=== PATIENT | female | born 1945 | race Two or more races ===

== ENCOUNTER 2017-02-02 17:15 | Emergency (ER) | payer MEDICARE, OTHER ==
--- NOTE | 2017-02-02 17:41 | ED.ADGEN ---
Past History Past Medical History: Hypertension Adult General Chief Complaint Chief Complaint " .. I fell 2 days ago.. working in the yard and garden...and hit the Rt. side of my head... I am still a little dizzy and off.. and the bruise is getting bigger..." HPI HPI Patient is a 71 year old female who presents with above hx and complaints of Rt sided head injury. Pt. has area of ecchymosis on right temporal. Pt. normally healthy. Does have a history of hypertension which she takes lisinopril .. Patient states that since injury she been somewhat"off" and dizzy. Patient does state the area of ecchymosis is seeming to increase. Patient denies use of any anticoagulants. Patient follows at [facility]. Review of Systems Review of Systems Constitutional: Denies fever or chills [] Eyes: Denies change in visual acuity, redness, or eye pain [] HENT: Denies nasal congestion or sore throat [ Complaints of head injury Respiratory: Denies cough or shortness of breath [] Cardiovascular: No additional information not addressed in HPI [] GI: Denies abdominal pain, nausea, vomiting, bloody stools or diarrhea [] : Denies dysuria or hematuria [] Musculoskeletal: Denies back pain or joint pain [] Integument: Denies rash or skin lesions [] Neurologic: Denies headache, focal weakness or sensory changes [] Endocrine: Denies polyuria or polydipsia [] Family History Family History Noncontributory Current Medications Current Medications See nursing for home meds Allergies Allergies Allergies Coded Allergies Type Severity Reaction Last Updated Verified No Known Drug Allergies 02/02/17 No No known drug allergies Physical Exam Physical Exam Constitutional: , no acute distress, non-toxic appearance. [] HENT: Normocephalic, contusion right temporal, bilateral external ears normal, oropharynx moist, no oral exudates, nose normal. [] Eyes: PERRLA, EOMI, conjunctiva normal, no discharge. [] Neck: Normal range of motion, no tenderness, supple, no stridor. [] Cardiovascular:Heart rate regular rhythm, no murmur [] Lungs & Thorax: Bilateral breath sounds clear to auscultation [] Abdomen: Bowel sounds normal, soft, no tenderness, no masses, no pulsatile masses. [] Skin: Warm, dry, no erythema, no rash. [] Back: No tenderness, no CVA tenderness. [] Extremities: No tenderness, no cyanosis, no clubbing, ROM intact, no edema. Arthritic changes Neurologic: Alert and oriented X 3, normal motor function, normal sensory function, no focal deficits noted. Aerial Photograph Interpreter are equal. Slightly off on Romberg and finger to nose bilaterally. DTRs +2. Patella and brachial. Drift bilaterally Psychologic: Affect anxious, judgement normal, mood normal. [] Current Patient Data Vital Signs Vital Signs Date Time Temp Pulse Resp B/P Pulse Ox O2 Delivery O2 Flow Rate FiO2 02/02/17 19:24 51 18 117/71 98 Room Air 02/02/17 17:15 97.6 EKG EKG [] Radiology/Procedures Radiology/Procedures My interpretation of CT head shows no shift, mass, edema, bleed, or fracture. Does have findings of soft tissue edema at area of contusion. Course & Med Decision Making Course & Med Decision Making Pertinent Labs and Imaging studies reviewed. (See chart for details). Ice when necessary. Follow-up primary care. May take Tylenol for pain. Follow-up primary care. Return if any concerns. [] Final Impression Final Impression 1. Closed Head Injury[] Problems: Dragon Disclaimer Dragon Disclaimer This electronic medical record was generated, in whole or in part, using a voice recognition dictation system. AURELIA SALDAÑA MD Feb 02, 2017 17:41
--- NOTE | 2017-02-02 18:34 | RAD ---
PROCEDURE CT head without contrast: HISTORY Fall 3 days ago dizziness bruising over right eye TECHNIQUE Noncontrast axial cross sectional CT scanning of the head was performed. FINDINGS No acute intracranial hemorrhage or midline shift or mass-effect or hydrocephalus or extra-axial fluid collection is seen. No focal hypodense area is seen to indicate an acute infarct or edema radiographically. No skull fracture or pneumocephalus is seen. No opacification of the mastoid sinuses or the paranasal sinuses is seen. The maxillary sinuses are not completely seen in this study. IMPRESSION No acute intracranial abnormality is seen. CT C-spine without contrast: Axial helical images of the C-spine obtained without contrast and axial coronal and sagittal reconstruction was performed. There is straightening of the normal cervical lordosis. There is no loss of vertebral body stature there is no prevertebral soft tissue swelling. There are posterior disc bulges with flattening of thecal sac however there is not appear to be gross flattening the cord. The visualized osseous structures appear intact. Impression No acute findings. Electronically signed by: Micky Alvarado MD (Feb 02, 2017 18:33:20)
[2017-02-02 19:24] VITALS: BP 117/71
== END 2017-02-02 19:24 | disposition home or self-care (01) ==
LOC: ER 17:15
DX: S09.8XXA Other specified injuries of head, initial encounter (principal); I10 Essential (primary) hypertension; W18.09XA Striking against other object with subsequent fall, initial encounter; Y93.89 Activity, other specified; Y99.8 Other external cause status; Y92.096 Garden or yard of other non-institutional residence as the place of occurrence of the external cause
CPT/HCPCS: 70450; 72125; 99284-25

== ENCOUNTER 2018-01-23 16:19 | Emergency (ER) | payer MEDICARE, OTHER ==
[2018-01-23 16:39] VITALS: BP 123/78
--- NOTE | 2018-01-23 16:53 | PHYS DOC ---
Past History Past Medical History: Hypertension Past Surgical History: Hysterectomy, Tonsillectomy, Other Alcohol Use: None Drug Use: None Adult General Chief Complaint Chief Complaint: LACERATION/AVULSION HPI HPI Patient is a 72-year-old female who presents ambulatory to the ED with a laceration to her left hand. She was using a knife to open a package and accidentally cut her left hand. Last tetanus shot was more than 10 years ago so she especially wants a tetanus shot. Review of Systems Review of Systems Constitutional: Denies fever or chills [] Current Medications Current Medications Current Medications Medications (Trade) Dose Ordered Sig/Jeff Start Time Stop Time Status Last Admin Dose Admin Diphtheria/ Tetanus/Acell Pertussis (Boostrix) 0.5 ml ONCE ONCE 01/23/18 17:00 01/23/18 17:01 Allergies Allergies Allergies Coded Allergies Type Severity Reaction Last Updated Verified No Known Drug Allergies 02/02/17 No Physical Exam Physical Exam Constitutional: Well developed, well nourished, no acute distress, non-toxic appearance. [] HENT: Normocephalic, atraumatic, bilateral external ears normal, nose normal. [] Eyes: conjunctiva normal, no discharge. [] Neck: Normal range of motion, no stridor. [] Skin: Warm, dry, no erythema, no rash. [] Extremities: Left hand: 1 cm laceration present over the radial aspect of the second MCP joint. It is very superficial but has been bleeding. Neurologic: Alert and oriented X 3, normal motor function, no focal deficits noted. [] Current Patient Data Vital Signs Vital Signs Date Time Temp Pulse Resp B/P (MAP) Pulse Ox O2 Delivery O2 Flow Rate FiO2 01/23/18 16:39 98.1 66 18 100 Room Air EKG EKG [] Radiology/Procedures Radiology/Procedures Procedure: Repair of left hand laceration with skin adhesive by me The 1 cm laceration on the thumb side of the left second knuckle is very superficial but barely into the subcutaneous tissue and has been bleeding. After holding pressure with gauze it is hemostatic. The laceration was approximated and adhered with skin adhesive. Good result.[] Course & Med Decision Making Course & Med Decision Making Pertinent Labs and Imaging studies reviewed. (See chart for details) [] Dragon Disclaimer Dragon Disclaimer This electronic medical record was generated, in whole or in part, using a voice recognition dictation system. Departure Departure: Impression: Primary Impression: Laceration of left hand Disposition: 01 HOME, SELF-CARE Condition: IMPROVED Referrals: BERTIN MADDEN MD (PCP) Additional Instructions: Try to avoid overusing your hand to avoid popping the laceration back open. You may get it wet briefly as needed but avoid getting it wet for any length of time. Do not put any topical ointment or other substance on the cut. If it does bleed more or comes open, you may use a Band-Aid to cover. SASHA WOOTEN MD Jan 23, 2018 16:53
[2018-01-23] MEDS ORDERED: DIPHTH,PERTUSS(ACELL),TET TOX 0.5 ML DISP.SYRIN. VAX IM ONE (17:00)
== END 2018-01-23 17:06 | disposition home or self-care (01) ==
LOC: ER 16:19
DX: S61.412A Laceration without foreign body of left hand, initial encounter (principal); I10 Essential (primary) hypertension; W26.0XXA Contact with knife, initial encounter; Y93.89 Activity, other specified; Y99.8 Other external cause status; Y92.89 Other specified places as the place of occurrence of the external cause
CPT/HCPCS: 12001; 90471; 90715; 99283-25

== ENCOUNTER 2018-08-28 12:54 | Emergency (ER) | payer MEDICARE, OTHER ==
[~2018-08-28] VITALS: Ht 162.6 cm; Wt 60.8 kg
[2018-08-28] MEDS ORDERED: AZIT250T PO (13:38)
--- NOTE | 2018-08-28 13:38 | PHYS DOC ---
Past History Past Medical History: Hypertension Past Surgical History: Hysterectomy, Tonsillectomy, Other Alcohol Use: None Drug Use: None Adult General Chief Complaint Chief Complaint: SORE THROAT HPI HPI Patient is a 73 year old female who presents with complaining of sore throat for 2 days. Patient states she has hoarseness this morning that improved. Patient denies fever and chills, earache, nasal congestion and cough, vomiting and diarrhea. Patient had recent sick contact. Review of Systems Review of Systems Constitutional: Denies fever or chills [] Eyes: Denies change in visual acuity, redness, or eye pain [] HENT: Reports sore throat Respiratory: Denies cough or shortness of breath [] Cardiovascular: No additional information not addressed in HPI [] GI: Denies abdominal pain, nausea, vomiting, bloody stools or diarrhea [] : Denies dysuria or hematuria [] Musculoskeletal: Denies back pain or joint pain [] Integument: Denies rash or skin lesions [] Neurologic: Denies headache, focal weakness or sensory changes [] Endocrine: Denies polyuria or polydipsia [] All other systems were reviewed and found to be within normal limits, except as documented in this note. Allergies Allergies Allergies Coded Allergies Type Severity Reaction Last Updated Verified No Known Drug Allergies 02/02/17 No Physical Exam Physical Exam Constitutional: Well developed, well nourished, no acute distress, non-toxic appearance. [] HENT: Normocephalic, atraumatic, bilateral external ears normal, oropharynx moist, pharyngeal erythema, no oral exudates, nose normal. [] Eyes: PERRLA, EOMI, conjunctiva normal, no discharge. [] Neck: Normal range of motion, no tenderness, supple, no stridor. [] Cardiovascular:Heart rate regular rhythm, no murmur [] Lungs & Thorax: Bilateral breath sounds clear to auscultation [] Skin: Warm, dry, no erythema, no rash. [] Back: No tenderness, no CVA tenderness. [] Extremities: No tenderness, no cyanosis, no clubbing, ROM intact, no edema. [] Neurologic: Alert and oriented X 3, normal motor function, normal sensory function, no focal deficits noted. [] Psychologic: Affect normal, judgement normal, mood normal. [] EKG EKG [] Radiology/Procedures Radiology/Procedures [] Course & Med Decision Making Course & Med Decision Making Pertinent Labs reviewed. (See chart for details) discharge: I've spoken with the patient and/or caregivers. I've explained the patient's condition, diagnosis and treatment plan based on information available to me at this time. I've answered the patient's and/or caregivers questions and addressed any concerns. The patient and/or caregivers have a good understanding the patient's diagnosis, condition and treatment plan as can be expected at this point. Vital signs have been stabilized. The patient's condition is stable for discharge from the emergency department. The patient will pursue further outpatient evaluation with her primary care provider or other designated consulting physician as outlined in the discharge instructions. Patient and/or caregivers are agreeable to this plan of care and follow-up instructions have been explained in detail. The patient and/or caregivers have received these instructions in written format and expressed understanding of these discharge instructions. The patient and her caregivers are aware that if any significant change in condition or worsening of symptoms should prompt him to immediately return to this of the closest emergency department. If an emergent department is not readily available I would encourage him to call 911. Fátima Disclaimer Dragon Disclaimer This electronic medical record was generated, in whole or in part, using a voice recognition dictation system. Departure Departure: Impression: Primary Impression: Acute pharyngitis Disposition: HOME, SELF-CARE (at 1337) Condition: STABLE Referrals: BERTIN MADDEN MD (PCP) Patient Instructions: Viral and Bacterial Pharyngitis Additional Instructions: Drink plenty of liquids Follow-up with your primary care physician in 3-5 days Return to ER if not getting better Scripts Azithromycin (ZITHROMAX) 250 Mg Tablet 1 PKG PO UD, #1 PKG Prov: VASILE BENNETT MD 08/28/18 VASILE BENNETT MD Aug 28, 2018 13:38
[2018-08-28 13:40] VITALS: BP 141/85
== END 2018-08-28 13:42 | disposition home or self-care (01) ==
LOC: ER 12:54
DX: J02.9 Acute pharyngitis, unspecified (principal); I10 Essential (primary) hypertension
CPT/HCPCS: 87070; 87880; 99283

== ENCOUNTER → 2018-11-21 | Outpatient (CLI) | payer MEDICARE, OTHER ==
[~2018-11-21] MED LIST: AZIT250T PO
--- NOTE | 2018-11-21 15:05 | RAD ---
EXAM: Renal sonogram. HISTORY: Renal insufficiency. TECHNIQUE: Sonographic imaging of the kidneys and bladder was performed. COMPARISON: None. FINDINGS: The right kidney measures 8.2 cm [id number]. The left kidney measures 9.5 cm [id number]. There is right renal cortical thinning. No solid or cystic renal lesion is seen. There is no hydronephrosis. The bladder is unremarkable. The ureteral jets are both seen. IMPRESSION: 1. Mild right renal atrophy and cortical thinning. 2. Otherwise, unremarkable renal sonogram. Electronically signed by: Loida Pineda MD (11/21/2018 3:01 PM) [facility]
== END | disposition home or self-care (01) ==
LOC: US 13:10
PROVIDERS: ATTEND Internal Medicine Nephrology
DX: N18.3 Chronic kidney disease, stage 3 (moderate) (principal); N26.1 Atrophy of kidney (terminal)
CPT/HCPCS: 76770

== ENCOUNTER 2019-07-26 20:46 | Emergency (ER) | payer MEDICARE, OTHER ==
[~2019-07-26] VITALS: Ht 162.6 cm; Wt 63.5 kg
--- NOTE | 2019-07-26 20:58 | ED.ADGEN ---
Past History Past Medical History: Hypertension, Hypothyroid Past Surgical History: Hysterectomy, Tonsillectomy, Other Alcohol Use: None Drug Use: None Adult General Chief Complaint Chief Complaint ".. I got these nodes in my neck... they come and go... I had a full Panorex of my teeth... I did have dental work on the left but not on the right where I had the lymph nodes... Also was found to have stage III kidney dysfunction and I have a follow-up for that but I get these nodes on the right side of my neck occasionally and it makes my jaw and neck tender... I am under a lot of stress... I'm going to a divorce.. I usually see Dr Gio Duncan...for care HPI HPI Patient is a 74 year old female who presents with above hx and complaints of sore throat, jaw pain . Patient 4 months has had intermittent episodes of adenopathy on right and left side of her neck. No dental caries. No lesions on scalp. No other areas of adenopathy on body. No history immunosuppression. No recent travel. No specific ill contacts. Pt. follows with Dr. Duncan. Review of Systems Review of Systems Constitutional: Denies fever or chills [] Eyes: Denies change in visual acuity, redness, or eye pain [] HENT: Complaints of neck adenopathy and sore throat [] Respiratory: Denies cough or shortness of breath [] Cardiovascular: No additional information not addressed in HPI [] GI: Denies abdominal pain, nausea, vomiting, bloody stools or diarrhea [] : Denies dysuria or hematuria [] Musculoskeletal: Denies back pain or joint pain [] Integument: Denies rash or skin lesions [] Neurologic: Denies headache, focal weakness or sensory changes [] Endocrine: Denies polyuria or polydipsia [] All other systems were reviewed and found to be within normal limits, except as documented in this note. Family History Family History Noncontributory- currently in a divorce process with her Current Medications Current Medications Current Medications Medications (Trade) Dose Ordered Sig/Jeff Start Time Stop Time Status Last Admin Dose Admin Prednisone (Prednisone) 50 mg 1X ONCE 07/26/19 21:00 07/26/19 21:01 DC 07/26/19 21:23 50 MG Allergies Allergies Allergies Coded Allergies Type Severity Reaction Last Updated Verified No Known Drug Allergies 02/02/17 No Physical Exam Physical Exam Constitutional: Well developed, well nourished, no acute distress, non-toxic appearance. [] HENT: Normocephalic, atraumatic, bilateral external ears normal, oropharynx moist, no oral exudates, nose normal. [] Eyes: PERRLA, EOMI, conjunctiva normal, no discharge. [] Neck: Normal range of motion, no tenderness, supple, no stridor. [] Very mild adenopathy 1 or 2 nodes less than 1 cm on right anterior neck chain Cardiovascular:Heart rate regular rhythm, no murmur [] Lungs & Thorax: Bilateral breath sounds clear to auscultation [] Abdomen: Bowel sounds normal, soft, no tenderness, no masses, no pulsatile masses. [] Skin: Warm, dry, no erythema, no rash. [] Back: No tenderness, no CVA tenderness. [] Extremities: No tenderness, no cyanosis, no clubbing, ROM intact, no edema. [] Neurologic: Alert and oriented X 3, normal motor function, normal sensory function, no focal deficits noted. [] Psychologic: Affect anxious judgement normal, mood normal. [] Current Patient Data Vital Signs Vital Signs Date Time Temp Pulse Resp B/P (MAP) Pulse Ox O2 Delivery O2 Flow Rate FiO2 07/26/19 21:35 55 20 135/67 (89) 97 Room Air 07/26/19 20:55 97.9 Lab Results Laboratory Tests Test 07/26/19 21:02 Group A Streptococcus Rapid Negative (NEGATIVE) EKG EKG [] Radiology/Procedures Radiology/Procedures [] Course & Med Decision Making Course & Med Decision Making Pertinent Labs and Imaging studies reviewed. (See chart for details). Gargle with Listerine 4 times a day. Follow-up primary care. If adenopathy is persistent consider surgical removal of isolated node. Sent half on normal saline and half on preservative for culture and cytology. Tylenol and ibuprofen for pain. Return if any concerns [] Final Impression Final Impression 1. Cervical adenopathy[] Dragon Disclaimer Dragon Disclaimer This electronic medical record was generated, in whole or in part, using a voice recognition dictation system. Dragon Disclaimer This chart was dictated in whole or in part using Voice Recognition software in a busy, high-work load, and often noisy Emergency Department environment. It may contain unintended and wholly unrecognized errors or omissions. AURELIA SALDAÑA MD Jul 26, 2019 20:58
[2019-07-26] MEDS ORDERED: predniSONE 10 MG TABLET PO ONE (21:00)
[2019-07-26 21:35] VITALS: BP 135/67
== END 2019-07-26 21:37 | disposition home or self-care (01) ==
LOC: ER 20:46
DX: R59.0 Localized enlarged lymph nodes (principal); E03.9 Hypothyroidism, unspecified; I10 Essential (primary) hypertension
CPT/HCPCS: 87070; 87880; 99283; J7512

== ENCOUNTER → 2019-08-28 | Outpatient (CLI) | payer MEDICARE, OTHER ==
--- NOTE | 2019-08-28 16:09 | RAD ---
EXAM: PA, oblique and lateral views of the left hand DATE: 08/28/2019 12:00 AM INDICATION: Left hand pain COMPARISON: No Prior FINDINGS: Marked osteopenia limits evaluation for acute fracture. Within these constraints no acute fractures identified. The joint space narrowing most prominent at the DIP joints. In addition central erosions with gullwing appearance at the DIP joints left index and middle finger as well as the small finger. 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 Electronically signed by: Salo Keita MD (08/28/2019 4:06 PM) [facility]
== END | disposition home or self-care (01) ==
LOC: RAD 13:25
PROVIDERS: ATTEND Orthopaedic Surgery
DX: M19.042 Primary osteoarthritis, left hand (principal)
CPT/HCPCS: 73130

== ENCOUNTER → 2020-11-16 | Outpatient (CLI) | payer MEDICARE, OTHER ==
--- NOTE | 2020-11-16 16:10 | CARD ---
MR#: [id number] Date of Study: 11/16/2020 Ordering Physician: OTONIEL MOSES, Referring Physician: OTONIEL MOSES, Tech: Virginia Phillips APPROVED REPORT EXAM: Two-dimensional and M-mode echocardiogram with Doppler and color Doppler. Other Information Quality : AverageHR: 64bpm INDICATION Hypertension/HCVD 2D DIMENSIONS RVDd3.0 (2.9-3.5cm)Left Atrium(2D)2.9 (1.6-4.0cm) IVSd1.0 (0.7-1.1cm)Aortic Root(2D)3.3 (2.0-3.7cm) LVDd4.4 (3.9-5.9cm)LVOT Diameter2.1 (1.8-2.4cm) PWd1.1 (0.7-1.1cm)LVDs2.6 (2.5-4.0cm) FS (%) 40.7 %SV61.8 ml LVEF(%)71.7 (>50%) Aortic Valve AoV Peak David.126.6cm/sAoV VTI26.0cm AO Peak GR.6.4mmHgLVOT Peak David.87.8cm/s LVOT VTI 17.73cmAO Mean GR.3mmHg ORESTES (VMAX)2.90ll8MGI (VTI)2.44cm2 AI P 1/2 [id number] Mitral Valve MV E Cxvmpdwx15.1cm/sMV DECEL [id number] MV A Ayzgrmil67.0cm/sE/A Ratio0.6 Pulmonary Valve PV Peak Hcajbdpq74.3cm/sPV Peak Grad.2mmHg Tricuspid Valve TR P. Cleapjge724ki/sRAP ISLNIXSM4lqVy TR Peak Gr.79elLiHHQO88jlQv LEFT VENTRICLE The left ventricle is normal size. There is borderline to mild concentric left ventricular hypertroph y. The left ventricular systolic function is normal. The ejection fraction is estimated at 65%. There is normal LV segmental wall motion. Transmitral Doppler flow pattern is Grade I-abnormal relaxation pattern. RIGHT VENTRICLE The right ventricle is normal size. There is normal right ventricular wall thickness. The right ventr icular systolic function is normal. ATRIA The left atrium size is normal. The right atrium size is normal. The interatrial septum is intact wit h no evidence for an atrial septal defect or patent foramen ovale as noted on 2-D or Doppler imaging. AORTIC VALVE The aortic valve is normal in structure and function. Doppler and Color Flow revealed trace aortic re gurgitation. There is no significant aortic valvular stenosis. Calculated aortic valve area is 2.7 cm 2 with maximum pressure gradient of 6 mmHg and mean pressure gradient of 3 mmHg. MITRAL VALVE The mitral valve is normal in structure and function. There is no evidence of mitral valve prolapse. There is no mitral valve stenosis. Doppler and Color-flow revealed trace mitral regurgitation. TRICUSPID VALVE The tricuspid valve is normal in structure and function. Doppler and Color Flow revealed trace tricus pid regurgitation with an estimated PAP of 19 mmHg. There is no tricuspid valve stenosis. PULMONIC VALVE The pulmonic valve is not well visualized. Doppler and Color Flow revealed trace pulmonic valvular re gurgitation. GREAT VESSELS The aortic root is normal in size. The ascending aorta is normal in size. The IVC is normal in size a nd collapses >50% with inspiration. PERICARDIAL EFFUSION There is no evidence of significant pericardial effusion. Critical Notification Critical Value: No <Conclusion> The left ventricular systolic function is normal. The ejection fraction is estimated at 65%. There is normal LV segmental wall motion. Transmitral Doppler flow pattern is Grade I-abnormal relaxation pattern. Trace mitral regurgitation. Trace tricuspid regurgitation with an estimated PAP of 19 mmHg. There is no evidence of significant pericardial effusion. Signed by : Otoniel Moses, Electronically Approved : 11/16/2020 16:10:14
== END ==
LOC: ECHO 13:45
PROVIDERS: ATTEND Internal Medicine Cardiovascular Disease
DX: I11.9 Hypertensive heart disease without heart failure (principal)
CPT/HCPCS: 93306

== ENCOUNTER → 2021-03-09 | Outpatient (CLI) | payer MEDICARE, OTHER ==
--- NOTE | 2021-03-09 14:06 | RAD ---
EXAM: Pelvic sonogram. HISTORY: Right lower quadrant pain. TECHNIQUE: Sonographic imaging of the pelvis was performed. COMPARISON: None. FINDINGS: The uterus is surgically absent. The ovaries are obscured due to bowel gas. The patient def erred transvaginal imaging for further characterization. No adnexal mass or cyst is seen. There is no pelvic free fluid. IMPRESSION: 1. Surgically absent uterus. 2. Obscured ovaries. No suspicious finding is seen within the adnexal regions. Electronically signed by: Loida Pineda MD (03/09/2021 2:04 PM) [id number]
== END ==
LOC: US 13:10
PROVIDERS: ATTEND Internal Medicine Hematology & Oncology
DX: R10.31 Right lower quadrant pain (principal); Z90.710 Acquired absence of both cervix and uterus
CPT/HCPCS: 76856